=== PATIENT | female | born 2005 | race Hispanic/Latino ===

== ENCOUNTER 2025-06-30 08:07 | Emergency (ER) | payer SELFPAY ==
[~2025-06-30] VITALS: Ht 157.5 cm; Wt 83.9 kg
[2025-06-30 08:45] LABS: IMMATURE GRANULOCYTE ABSOLUTE 0.02 K/uL (0-1); NUCLEATED RED BLOOD CELLS 0.0 % (0.0-0.19); PLATELET COUNT (AUTO) 234 K/uL (130-400); RED BLOOD CELL COUNT(AUTO) 4.52 MIL/uL (4.00-5.50); RED CELL DISTRIBUTION WIDTH 14.3 % (11.0-15.5); WHITE BLOOD COUNT (AUTO) 7.4 K/uL (4.8-10.8)
[2025-06-30 08:51] VITALS: TEMP 98.6
[2025-06-30 08:57] LABS: CREATININE 0.7 mg/dL (0.5-1.0); GLOMERULAR FILTR. RATE CALC 125.0 mL/min (>90); GLUCOSE,RANDOM 83.0 mg/dL (70-105); SODIUM SERUM 140.0 mmol/L (136-145); UREA NITROGEN, BLOOD 10.0 mg/dL (7-18)
[2025-06-30 09:01] LABS: ASPARTATE AMINOTRANSFERASE 27.0 U/L (10-37); TOTAL PROTEIN, SERUM 7.6 g/dL (6.0-8.3)
--- NOTE | 2025-06-30 09:16 | EKG ---
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
--- NOTE | 2025-06-30 09:34 | ERN ---
ED Note History of Present Illness Stated Complaint: BLOOD IN STOOL Chief Complaint: Bloody Stool Time Seen by MD: 08:15 Dictation: 20-year-old female presenting to the emergency department with some chest discomfort and blood in stool over the past few days. Similar episodes in the past but says that it is more blood today. No abdominal pain. Allergies: Coded Allergies: No Known Drug Allergies (Unverified Allergy, Unknown, 06/30/25) Past Medical History Past Medical History: No Pertinent History Surgical History: None Review of System Dictation Constitutional: Negative for fever,chills, and weight loss Eyes: Negative for injury, pain,redness, and discharge ENT: Negative for injury,pain or swelling Cardiovascular: per HPi Respiratory: Negative for shortness of breath, cough, and wheezing, Abdomen/GI: Per HPI : Negative for injury, bleeding and discharge MS/Extremity: Negative for injury and deformity Skin: Negative for rash, and discoloration Neuro: Negative for headache, weakness, numbness, tingling, and seizure Psych: Negative for suicide ideation, homicidal ideation, and hallucinations Initial Vital Sign VS Vital Signs Date Time Temp Pulse Resp B/P (MAP) Pulse Ox O2 Delivery O2 Flow Rate FiO2 06/30/25 08:08 97.7 89 16 119/79 99 Room Air 06/30/25 08:51 0 21 Physical Exam Dictation General: awake, alert, NAD Head/Face: Normocephalic, atraumatic Eyes: PERRL, EOMI, vision at baseline ENT: oral cavity clear, TMs clear, no signs of infection Neck: Trachea midline, supple, no nuchal rigidity Cardiovascular: RRR, normal S1/S2, No MRGs, no JVD Respiratory: CTAB, no respiratory distress, No rales or wheezes Abdomen: Soft, non-tender, non-distended, normal bowel sounds, no guarding or rebound. Skin: Warm, dry, normal turgor, no rash MS/Extremity: Pulses equal, no cyanosis, neurovascular intact, FROM Neuro: COAx4, GCS 15, strength 5/5, CN 2-12 intact, normal cerebellar exam, normal gait, Psych: Normal behavior, mood, and affect normal Results (Laboratory/Radiology) Laboratory/Radiology Laboratory Tests Test 06/30/25 08:39 White Blood Count 7.4 K/uL (4.8-10.8) Red Blood Count 4.52 MIL/uL (4.00-5.50) Hemoglobin 12.5 g/dL (12.0-16.0) Hematocrit 38.4 % (36-48) Mean Corpuscular Volume 85.0 fL (79-99) Mean Corpuscular Hemoglobin 27.7 pg (27.0-33.0) Mean Corpuscular Hemoglobin Concent 32.6 g/dL (32.0-36.0) Red Cell Distribution Width 14.3 % (11.0-15.5) Platelet Count 234 K/uL (130-400) Mean Platelet Volume 9.7 fL (7.5-10.5) Immature Granulocyte % (Auto) 0.3 % (0-1) Neutrophils (%) (Auto) 75.8 % (40.0-77.0) Lymphocytes (%) (Auto) 15.1 % (21.0-51.0) L Monocytes (%) (Auto) 7.4 % (3.0-13.0) Eosinophils (%) (Auto) 0.7 % (0.0-8.0) Basophils (%) (Auto) 0.7 % (0.0-5.0) Neutrophils # (Auto) 5.6 K/uL (1.8-7.7) Lymphocytes # (Auto) 1.1 K/uL (1.0-4.8) Monocytes # (Auto) 0.6 K/uL (0.1-1.0) Eosinophils # (Auto) 0.05 K/uL (0.00-0.70) Basophils # (Auto) 0.05 K/uL (0.00-0.20) Absolute Immature Granulocyte (auto 0.02 K/uL (0-1) Nucleated Red Blood Cells 0.0 % (0.0-0.19) Sodium Level 140 mmol/L (136-145) Potassium Level 3.7 mmol/L (3.5-5.1) Chloride Level 103 mmol/L (101-111) Carbon Dioxide Level 27 mmol/L (21-32) Blood Urea Nitrogen 10 mg/dL (7-18) Creatinine 0.7 mg/dL (0.5-1.0) Glomerular Filtration Rate Calc 125 mL/min (>90) Random Glucose 83 mg/dL (70-105) Total Calcium 8.8 mg/dL (8.5-10.1) Total Bilirubin 0.4 mg/dL (0.2-1.0) Direct Bilirubin 0.1 mg/dL (0.0-0.3) Aspartate Amino Transf (AST/SGOT) 27 U/L (10-37) Alanine Aminotransferase (ALT/SGPT) 56 U/L (12-78) Alkaline Phosphatase 90 U/L (50-136) Total Protein 7.6 g/dL (6.0-8.3) Albumin 3.7 g/dL (3.5-5.0) Serum Test, Qualitative NEGATIVE (NEGATIVE) Labs Reviewed?: Yes EKG Comment: Heart rate 86 normal sinus rhythm normal intervals no STEMI ED Course ED Course Orders Procedure Category Date Status Time 12 Lead Ekg Tracing- EKG 06/30/25 Complete Technical 08:33 Basic Metabolic Panel LAB 06/30/25 Complete 08:33 Cbc With Differential LAB 06/30/25 Complete 08:33 Hepatic Function Panel LAB 06/30/25 Complete 08:33 Testing, LAB 06/30/25 Complete Serum Hcg 08:33 Chest 1vw RAD 06/30/25 Logged 08:33 Vital Signs Date Time Temp Pulse Resp B/P (MAP) Pulse Ox O2 Delivery O2 Flow Rate FiO2 06/30/25 08:51 98.6 83 20 12/70 98 Room Air* 0 21 06/30/25 08:08 97.7 89 16 119/79 99 Room Air Medical Decision Making MDM MDM: Differential diagnosis: Rationale: Tests considered and ordered secondary to shared decision making include: Previous outside records reviewed: Old ER visits. Risk of complication and/or morbidity or mortality of patient management: None Medications-Per medication reconciliation Need for hospitalization: Patient does not meet criteria for hospitalization. Need for emergency major/minor surgery: No There are no social concerns with this patient. Prescription drug management Prescriptions will include symptomatic care Patient's prior external medical records from other ER visits were reviewed by me as indicated. Prior testing and results from previous visits were reviewed. Prior tests were taken into account with medical decision making and resource utilization, independent historian/historians were used to obtain complete medical history. I independently interpreted the test that were performed, results were reviewed by me and considered findings on radiology if ordered. Medical management and examination interpretation discussions were had by me with other qualified healthcare professionals as indicated for the patient's care. 20-year-old female lower GI bleed hemodynamically stable H and H stable, normal BUN atypical chest pain stable for outpatient follow up set up with primary care referral. DX & DISP Disposition: Discharge Departure Impression: Primary Impression: Lower gastrointestinal bleed Additional Impression: Chest pain Condition: Stable Referrals: SELF,REFERRAL (PCP) KAE GAMEZ MD Jun 30, 2025 09:34
[2025-06-30 09:54] VITALS: BP 126/71; PULSE 79; RESP 20; O2SAT 99
== END 2025-06-30 09:55 | disposition home or self-care (01) ==
LOC: EDH 08:07
DX: K92.2 Gastrointestinal hemorrhage, unspecified (principal); R07.89 Other chest pain
CPT/HCPCS: 36415; 80048; 80076; 84703; 85025; 93005; 99284